=== PATIENT | female | born 1975 | race Caucasian/White ===

== ENCOUNTER 2017-11-12 06:22 | Day surgery (SDC) | payer OTHER ==
[~2017-11-12] VITALS: Ht 157.5 cm; Wt 82.6 kg
[2017-11-12] MEDS ORDERED: KETOROLAC 30 MG/ML VIAL ONE (08:07)
[2017-11-12] MEDS ORDERED: LIDOCAINE 2% 100 MG/5 ML UJET TP ONE (08:07)
== END 2017-11-12 09:20 | disposition home or self-care (01) ==
LOC: MOR 06:22 → MMU 06:24 → MOR 09:20
PROVIDERS: ATTEND Internal Medicine Gastroenterology
DX: K62.1 Rectal polyp (principal); K64.8 Other hemorrhoids; E66.9 Obesity, unspecified; K76.89 Other specified diseases of liver; Z68.34 Body mass index [BMI] 34.0-34.9, adult
CPT/HCPCS: 45385; J1885